=== PATIENT | female | born 1965 | race Caucasian/White ===

== ENCOUNTER 2017-06-20 13:04 | Day surgery (SDC) | payer BC ==
[2017-05-25 10:57] VITALS: BMI 53.0
[2017-06-20] MEDS ORDERED: Sodium Chloride 0.9% 10 ML ONE (13:39)
[2017-06-20] MEDS ORDERED: Propofol 200 MG/20 ML VIAL ONE (15:42)
[2017-06-20] MEDS ORDERED: Lidocaine 1% PF 5 ML VIAL ONE (15:42)
--- NOTE | 2017-06-21 12:09 | OP ---
DATE OF PROCEDURE: 06/20/2017 PREOPERATIVE DIAGNOSIS: Colorectal cancer screening. DESCRIPTION OF THE PROCEDURE: After informed consent was obtained, the patient was placed in the le ft lateral decubitus position and anesthesia was administered per the Anesthesia Department. Forwar d viewing endoscope was inserted into the rectum after perianal inspection and rectal exam were norm al and passed to the cecum with ease. The cecum, ileocecal valve, and appendiceal orifice were norm al. The ascending, transverse, descending, sigmoid, and rectum were normal except for a single poly p at the splenic flexure. This polyp was removed with snare electrocautery. ASSESSMENT: 1. Splenic flexure polyp - status post polypectomy. 2. Otherwise, normal colonoscopy. RECOMMENDATIONS: Await histopathology.
== END 2017-06-20 16:42 | disposition home or self-care (01) ==
LOC: SDC 13:04
PROVIDERS: ATTEND Internal Medicine Gastroenterology
PROC: 0DBN8ZX Excision of Sigmoid Colon, Via Natural or Artificial Opening Endoscopic, Diagnostic (ICD-10-PCS; principal; 2017-06-20)
DX: Z12.11 Encounter for screening for malignant neoplasm of colon (principal); K63.5 Polyp of colon; Z79.899 Other long term (current) drug therapy; Z88.0 Allergy status to penicillin; Z90.12 Acquired absence of left breast and nipple; Z90.49 Acquired absence of other specified parts of digestive tract; Z85.3 Personal history of malignant neoplasm of breast
CPT/HCPCS: 88305; J2001; J2704

== ENCOUNTER 2018-05-14 13:41 | Outpatient (CLI) | payer BC | END 2018-05-14 13:42 | disposition home or self-care (01) | LOC: BICMAMMO 13:41 | PROVIDERS: ATTEND Internal Medicine Medical Oncology | DX: C50.919 Malignant neoplasm of unspecified site of unspecified female breast (principal); Z80.3 Family history of malignant neoplasm of breast | CPT/HCPCS: 77080; G0279 ==

== ENCOUNTER 2019-05-15 11:56 | Outpatient (CLI) | payer BC, SELFPAY ==
--- NOTE | 2019-05-20 06:45 | MMO ---
Bilateral MAMMO Bilat Screen [facility]. CLINICAL HISTORY: Patient is 53 years old and is seen for screening. The patient has the following family history of breast cancer: mother, at age 42, malignant (generic). The patient has a history of left Mastectomy in 2013 - malignant. VIEWS: The views performed were: right craniocaudal with tomosynthesis and right mediolateral oblique with tomosynthesis. FILMS COMPARED: The present examination has been compared to prior imaging studies performed at [facility] on 04/01/2015, 04/10/2016, 04/11/2017 and 05/14/2018. MAMMOGRAM FINDINGS: There are scattered fibroglandular densities. Patient has history of left breast mastectomy. There are no suspicious masses, suspicious calcifications, or new areas of architectural distortion. IMPRESSION: THERE IS NO MAMMOGRAPHIC EVIDENCE OF MALIGNANCY. A ROUTINE FOLLOW-UP MAMMOGRAM IN 1 YEAR IS RECOMMENDED. THE RESULTS OF THIS EXAM WERE SENT TO THE PATIENT. ACR BI-RADS Category 2 - Benign finding MAMMOGRAPHY NOTE: 1. A negative mammogram report should not delay a biopsy if a dominant of clinically suspicious mass is present. 2. Approximately 10% to 15% of breast cancers are not detected by mammography. 3. Adenosis and dense breasts may obscure an underlying neoplasm. Reported by: LOY PELAYO MD Electonically Signed: [id number]
== END 2019-05-15 11:57 | disposition home or self-care (01) ==
LOC: BICMAMMO 11:56
PROVIDERS: ATTEND Internal Medicine Medical Oncology
DX: Z12.31 Encounter for screening mammogram for malignant neoplasm of breast (principal); Z80.3 Family history of malignant neoplasm of breast; Z90.12 Acquired absence of left breast and nipple
CPT/HCPCS: 77063; 77067

== ENCOUNTER 2020-08-06 07:02 | Outpatient (CLI) | payer OTHER ==
[2020-08-06 18:43] LABS: Hemoglobin 13.3 g/dL (12.0-16.0); Mean Corpuscular HGB CONC 31.7 G/DL (32.0-36.0); Mean Corpuscular Volume 85.2 fl (80.0-100.0); Mean Platelet Volume 9.6 fl (7.4-10.4); Platelet Count 254 10x3/uL (130-400); RBC Distribution Width 13.1 % (11.5-14.5); Red Blood Cell (RBC) Count 4.92 10x6/uL (3.90-5.20); White Blood Cell (WBC) Count 13.1 10x3/uL (4.5-11.0)
[2020-08-06 18:58] LABS: Anion Gap 17 mmol/L (10-20); BUN (Urea Nitrogen) 12 mg/dL (9.8-20.1); Calc. Creatinine Clearance 0 mL/min (70-130); Carbon Dioxide 22 mmol/L (22-29); Chloride 104 mmol/L (98-107); Estimated GFR-MDRD 86; Glucose 96 mg/dL (70-105); Potassium 4.4 mmol/L (3.5-5.1); Sodium 139 mmol/L (136-145)
[2020-08-07 13:41] LABS: SARS-CoV-2 MS2 Positive; SARS-CoV-2 N Gene Negative; SARS-CoV-2 S Gene Negative; SARS-CoV-2 by NAA Not Detected (NotDetected); SARS-CoV-2 orf1ab Negative
== END 2020-08-06 07:03 | disposition home or self-care (01) ==
LOC: LABBT 07:02
PROVIDERS: ATTEND Student in an Organized Health Care Education/Training Program
DX: Z01.812 Encounter for preprocedural laboratory examination (principal); Z20.828 Contact with and (suspected) exposure to other viral communicable diseases; N93.9 Abnormal uterine and vaginal bleeding, unspecified
CPT/HCPCS: 80048; 85027; 86850; 86900; 86901; 87635; U0003

== ENCOUNTER 2020-08-11 09:54 | Day surgery (SDC) | payer OTHER ==
[2020-08-10 14:24] VITALS: BMI 60.0
[~2020-08-11 09:54] MED LIST: Dexamethasone 20 MG/5 ML VIAL ONE; Glycopyrrolate 0.2 MG/ML 5 ML SYRINGE ONE; Lidocaine 1% PF 5 ML VIAL ONE; Ondansetron PF 4 MG/2 ML Vial ONE; PROPOFOL 200 MG/20 ML VIAL ONE; Rocuronium Bromide 10 MG/ML (10ML VIAL) ONE; Succinylcholine 200 MG/10 ml SYRINGE FS ONE
[2020-08-11] MEDS ORDERED: Fentanyl 100 MCG/2 ML VIAL ONE (10:25)
--- NOTE | 2020-08-11 14:49 | OP ---
DATE OF PROCEDURE: 08/11/2020 PREOPERATIVE DIAGNOSES: 1. Abnormal uterine bleeding. 2. Simple hyperplasia without atypia. POSTOPERATIVE DIAGNOSES: 1. Abnormal uterine bleeding. 2. Simple hyperplasia without atypia. PROCEDURES PERFORMED: Hysteroscopy, D and C with TruClear resection. ANESTHESIA: General endotracheal. CLINICAL SUPERVISOR SURGEON: None. ESTIMATED BLOOD LOSS: 10 mL. URINE OUTPUT: 50 mL clear urine at the beginning. COMPLICATIONS: None. DRAINS: None. PATHOLOGY: Endometrial curettings. FINDINGS: Uterus with multiple tissue projections that were polypoid-like. Bilateral tubal ostia were visualized. The uterus sounded to 9 cm. There was a large amount of endometrial tissue obtained. The cervix was normal appearing and the fluid deficit for the case was 1630 mL. DESCRIPTION OF PROCEDURE: The patient was taken to the operating room, where general anesthesia was obtained without difficulty. The patient was prepped and draped in a sterile fashion in the dorsal lithotomy position. A red rubber was used to drain the bladder. The speculum was placed in the vagina. The anterior lip of the cervix was grasped with single-tooth tenaculum. The cervix was then progressively dilated with Girish dilators. The uterus then sounded to 9 cm and the 5 mm hysteroscope was assembled, and using normal saline as distention media, it was inserted into the uterus and the above findings were noted and photodocumentation was performed. The small soft tissue mini incisor was then used to morcellate the tissue and sent for final pathology. The fluid deficit was increased at that point. Therefore, sharp curette was performed through all four uterine quadrants and this was also sent with the final specimen. The tenaculum was then removed off the cervix. There was no active bleeding from the cervix and all instruments were then removed from the vagina. The patient tolerated the procedure well. Sponge, lap, and needle counts correct x2. The patient was taken to recovery room in stable condition. The patient received Ancef 2 g prior to the procedure. Job ID: [id number]
== END 2020-08-11 14:48 | disposition home or self-care (01) ==
LOC: SDC 09:54
PROVIDERS: ATTEND Student in an Organized Health Care Education/Training Program
PROC: 0UDB8ZZ Extraction of Endometrium, Via Natural or Artificial Opening Endoscopic (ICD-10-PCS; principal; 2020-08-11)
DX: N85.02 Endometrial intraepithelial neoplasia [EIN] (principal); Z79.899 Other long term (current) drug therapy; Z88.0 Allergy status to penicillin
CPT/HCPCS: 86850; 86900; 86901; 88305; J0690; J1100; J2405; J2704; J3010

== ENCOUNTER 2020-09-27 06:38 | Outpatient (CLI) | payer OTHER ==
[2020-09-27 08:35] LABS: Hemoglobin 11.8 g/dL (12.0-16.0); Mean Corpuscular HGB CONC 30.8 G/DL (32.0-36.0); Mean Corpuscular Hemoglobin 26.9 PG (27.0-33.0); Mean Corpuscular Volume 87.2 fl (80.0-100.0); Mean Platelet Volume 9.6 fl (7.4-10.4); Platelet Count 201 10x3/uL (130-400); RBC Distribution Width 13.1 % (11.5-14.5); Red Blood Cell (RBC) Count 4.39 10x6/uL (3.90-5.20); White Blood Cell (WBC) Count 8.9 10x3/uL (4.5-11.0)
[2020-09-27 18:01] LABS: SARS-CoV-2 MS2 Positive; SARS-CoV-2 N Gene Positive; SARS-CoV-2 S Gene Positive; SARS-CoV-2 by NAA DETECTED (NotDetected); SARS-CoV-2 orf1ab Positive
== END 2020-09-27 06:39 | disposition home or self-care (01) ==
LOC: LABBT 06:38
PROVIDERS: ATTEND Student in an Organized Health Care Education/Training Program
DX: U07.1 COVID-19 (principal); Z01.812 Encounter for preprocedural laboratory examination; N85.01 Benign endometrial hyperplasia
CPT/HCPCS: 85027; 87635; U0003

== ENCOUNTER 2021-01-30 15:20 | Inpatient (IN) | payer BC ==
[~2021-01-30 15:20] MED LIST changes: -Dexamethasone 20 MG/5 ML VIAL ONE; -Glycopyrrolate 0.2 MG/ML 5 ML SYRINGE ONE; +Iopamidol-370 76% 500 ML 1 ML ONE; -Lidocaine 1% PF 5 ML VIAL ONE; -Ondansetron PF 4 MG/2 ML Vial ONE; -PROPOFOL 200 MG/20 ML VIAL ONE; -Rocuronium Bromide 10 MG/ML (10ML VIAL) ONE; -Succinylcholine 200 MG/10 ml SYRINGE FS ONE
[2021-01-30 18:12] VITALS: BMI 60.6
[2021-01-30] MEDS ORDERED: Acetaminophen 325 MG TAB PO PRN (18:12)
[2021-01-30] MEDS ORDERED: Potassium Chloride 20 MEQ TAB PO SCH (18:30)
[2021-01-30 19:15] LABS: Troponin I Less than 0.010 ng/mL (< 0.028)
[2021-01-30] MEDS: Famotidine 20 MG TAB PO SCH (22:18)
[2021-01-30] MEDS: Enoxaparin Sodium 40 MG/0.4 ML SYRINGE SC SCH (22:18)
[2021-01-31 05:42] LABS: #Monocytes 0.3 thou/uL (0.11-0.59); #Neutrophils 2.8 thou/uL (1.40-6.50); %Eosinophils 0.1 % (0.0-10.0); %Lymphocytes 24.5 % (21.0-51.0); %Monocytes 7.1 % (0.0-10.0); %Neutrophils 68.4 % (42.0-75.0); Hemoglobin 11.6 g/dL (12.0-16.0); Mean Corpuscular Hemoglobin 28.2 pg (27.0-31.0); Mean Corpuscular Volume 85.5 fL (78.0-98.0); Mean Platelet Volume 7.3 fL (7.4-10.4); Platelet Count 187 thou/uL (130-400); Red Blood Cell (RBC) Count 4.11 mill/uL (4.20-5.40); White Blood Cell (WBC) Count 4.1 thou/uL (4.8-10.8)
[2021-01-31 06:16] LABS: Anion Gap 12 mmol/L (10-20); BUN (Urea Nitrogen) 7 mg/dL (9.8-20.1); Calc. Creatinine Clearance 258 mL/min (70-130); Calcium 8.8 mg/dL (7.8-10.44); Carbon Dioxide 28 mmol/L (22-29); Chloride 106 mmol/L (98-107); Glucose 131 mg/dL (70-105); Potassium 3.9 mmol/L (3.5-5.1); Sodium 142 mmol/L (136-145)
[2021-01-31] MEDS: Mometasone 200 MCG/Formoterol 5 MCG 120 PUFF INHALER INH SCH ×3 (06:36→18:59)
[2021-01-31] MEDS: Cholecalciferol (Vitamin D3) 400 UNITS TAB PO SCH (09:44)
[2021-01-31] MEDS: Famotidine 20 MG TAB PO SCH ×2 (09:44→20:45)
[2021-01-31] MEDS: Zinc Sulfate 220 MG CAP PO SCH (09:44)
[2021-01-31] MEDS: Enoxaparin Sodium 40 MG/0.4 ML SYRINGE SC SCH (09:45)
[2021-01-31] MEDS: Dexamethasone 4 mg/ml Vial SLOW IVP SCH (09:45)
[2021-01-31] MEDS: Ascorbic Acid 500 mg Chewable Tablet PO SCH (09:45)
[2021-01-31] MEDS ORDERED: REMDESIVIR (EUA) 200 MG in Sodium Chloride 0.9% 250 ML 210 ML IV SCH ×2 (14:30→20:00)
[2021-01-31] MEDS: Apixaban 5 MG TAB PO SCH (20:45)
[2021-02-01] MEDS: Mometasone 200 MCG/Formoterol 5 MCG 120 PUFF INHALER INH SCH ×2 (06:40→18:46)
[2021-02-01] MEDS: Cholecalciferol (Vitamin D3) 400 UNITS TAB PO SCH (08:45)
[2021-02-01] MEDS: Ascorbic Acid 500 mg Chewable Tablet PO SCH (08:45)
[2021-02-01] MEDS: Famotidine 20 MG TAB PO SCH ×2 (08:45→20:44)
[2021-02-01] MEDS: Apixaban 5 MG TAB PO SCH ×2 (08:45→20:44)
[2021-02-01] MEDS: Zinc Sulfate 220 MG CAP PO SCH (08:45)
[2021-02-01] MEDS: Dexamethasone 4 mg/ml Vial SLOW IVP SCH (08:45)
[2021-02-01] MEDS: Ivermectin 3 MG TAB PO SCH (08:48)
[2021-02-01] MEDS: REMDESIVIR (EUA) 100 MG in Sodium Chloride 0.9% 250 ML 230 ML IV SCH (20:44)
[2021-02-02 05:39] LABS: ALT (SGPT) 91 U/L (8-55); AST (SGOT) 64 U/L (5-34); Albumin 3.2 g/dL (3.5-5.0); Alkaline Phosphatase 46 U/L (40-110); Bilirubin, Direct 0.1 mg/dL (0.1-0.3); Bilirubin, Total 0.3 mg/dL (0.2-1.2); Protein, Total 6.2 g/dL (6.0-8.3)
[2021-02-02] MEDS: Mometasone 200 MCG/Formoterol 5 MCG 120 PUFF INHALER INH SCH ×2 (06:05→19:31)
[2021-02-02] MEDS: Ivermectin 3 MG TAB PO SCH (08:24)
[2021-02-02] MEDS: Dexamethasone 4 mg/ml Vial SLOW IVP SCH (08:25)
[2021-02-02] MEDS: Apixaban 5 MG TAB PO SCH ×2 (08:25→20:32)
[2021-02-02] MEDS: Famotidine 20 MG TAB PO SCH ×2 (08:25→20:32)
[2021-02-02] MEDS: Zinc Sulfate 220 MG CAP PO SCH (08:25)
[2021-02-02] MEDS: Cholecalciferol (Vitamin D3) 400 UNITS TAB PO SCH (08:25)
[2021-02-02] MEDS: Ascorbic Acid 500 mg Chewable Tablet PO SCH (08:25)
[2021-02-02] MEDS: REMDESIVIR (EUA) 100 MG in Sodium Chloride 0.9% 250 ML 230 ML IV SCH (20:32)
[2021-02-03] MEDS: Mometasone 200 MCG/Formoterol 5 MCG 120 PUFF INHALER INH SCH ×2 (06:18→18:35)
[2021-02-03] MEDS: Ascorbic Acid 500 mg Chewable Tablet PO SCH (08:04)
[2021-02-03] MEDS: Famotidine 20 MG TAB PO SCH ×2 (08:04→20:13)
[2021-02-03] MEDS: Zinc Sulfate 220 MG CAP PO SCH (08:04)
[2021-02-03] MEDS: Apixaban 5 MG TAB PO SCH ×2 (08:04→20:13)
[2021-02-03] MEDS: Cholecalciferol (Vitamin D3) 400 UNITS TAB PO SCH (08:04)
[2021-02-03] MEDS: Ivermectin 3 MG TAB PO SCH (08:04)
[2021-02-03] MEDS: Dexamethasone 4 mg/ml Vial SLOW IVP SCH (08:04)
[2021-02-03] MEDS: REMDESIVIR (EUA) 100 MG in Sodium Chloride 0.9% 250 ML 230 ML IV SCH (20:12)
[2021-02-04] MEDS: Mometasone 200 MCG/Formoterol 5 MCG 120 PUFF INHALER INH SCH ×2 (05:43→19:20)
[2021-02-04] MEDS: Cholecalciferol (Vitamin D3) 400 UNITS TAB PO SCH (08:41)
[2021-02-04] MEDS: Ivermectin 3 MG TAB PO SCH (08:41)
[2021-02-04] MEDS: Zinc Sulfate 220 MG CAP PO SCH (08:41)
[2021-02-04] MEDS: Famotidine 20 MG TAB PO SCH ×2 (08:41→20:48)
[2021-02-04] MEDS: Apixaban 5 MG TAB PO SCH ×2 (08:41→20:48)
[2021-02-04] MEDS: Ascorbic Acid 500 mg Chewable Tablet PO SCH ×2 (08:41→08:42)
[2021-02-04] MEDS: Dexamethasone 4 mg/ml Vial SLOW IVP SCH (08:42)
[2021-02-04] MEDS: REMDESIVIR (EUA) 100 MG in Sodium Chloride 0.9% 250 ML 230 ML IV SCH (20:48)
[2021-02-05] MEDS: Mometasone 200 MCG/Formoterol 5 MCG 120 PUFF INHALER INH SCH (06:05)
[2021-02-05] MEDS: Apixaban 5 MG TAB PO SCH (09:22)
[2021-02-05] MEDS: Cholecalciferol (Vitamin D3) 400 UNITS TAB PO SCH (09:22)
[2021-02-05] MEDS: Famotidine 20 MG TAB PO SCH (09:22)
[2021-02-05] MEDS: Dexamethasone 4 mg/ml Vial SLOW IVP SCH (09:23)
[2021-02-05] MEDS: Zinc Sulfate 220 MG CAP PO SCH (09:23)
[2021-02-05] MEDS: Ascorbic Acid 500 mg Chewable Tablet PO SCH (09:24)
[2021-02-05] MEDS: Ivermectin 3 MG TAB PO SCH (09:24)
[2021-02-05 09:27] VITALS: BP 116/69; TEMP 97.6
== END 2021-02-05 11:25 | disposition home or self-care (01) | DRG 177 ==
LOC: OBSVTOIN 15:20 → 2SW 15:20
PROVIDERS: ADMIT Family Medicine; ATTEND Internal Medicine
PROC: 5A09357 Assistance with Respiratory Ventilation, Less than 24 Consecutive Hours, Continuous Positive Airway Pressure (ICD-10-PCS; 2021-01-30)
PROC: XW033E5 Introduction of Remdesivir Anti-infective into Peripheral Vein, Percutaneous Approach, New Technology Group 5 (ICD-10-PCS; principal; 2021-01-31)
PROC: 8E0ZXY6 Isolation (ICD-10-PCS; 2021-01-31)
DX: U07.1 COVID-19 (principal); J12.82 Pneumonia due to coronavirus disease 2019; Z68.44 Body mass index [BMI] 60.0-69.9, adult; R74.01 Elevation of levels of liver transaminase levels; G47.33 Obstructive sleep apnea (adult) (pediatric); E66.01 Morbid (severe) obesity due to excess calories; R79.89 Other specified abnormal findings of blood chemistry; Z60.2 Problems related to living alone; E87.6 Hypokalemia; I45.81 Long QT syndrome; R19.7 Diarrhea, unspecified; Z28.21 Immunization not carried out because of patient refusal; Z85.3 Personal history of malignant neoplasm of breast; Z90.12 Acquired absence of left breast and nipple; Z92.21 Personal history of antineoplastic chemotherapy; Z88.0 Allergy status to penicillin; Z90.49 Acquired absence of other specified parts of digestive tract; Z98.51 Tubal ligation status; Z79.810 Long term (current) use of selective estrogen receptor modulators (SERMs); Z82.49 Family history of ischemic heart disease and other diseases of the circulatory system; Z86.16 Personal history of COVID-19; Z79.899 Other long term (current) drug therapy
CPT/HCPCS: 36415; 71275; 80048; 80076; 82728; 85025; 85379; 85652; 86140; 93306; J1100; J1650; J7050; Q9967

== ENCOUNTER 2021-05-25 07:51 | Outpatient (CLI) | payer BC | END 2021-05-25 07:52 | disposition home or self-care (01) | LOC: BICMAMMO 07:51 | PROVIDERS: ATTEND Internal Medicine Medical Oncology | DX: Z12.31 Encounter for screening mammogram for malignant neoplasm of breast (principal); Z80.3 Family history of malignant neoplasm of breast; Z85.3 Personal history of malignant neoplasm of breast; Z90.12 Acquired absence of left breast and nipple | CPT/HCPCS: 77063; 77067 ==

== ENCOUNTER 2021-06-08 08:53 | Outpatient (CLI) | payer BC | END 2021-06-08 08:54 | disposition home or self-care (01) | LOC: DTY/OP 08:53 | PROVIDERS: ATTEND Specialist | DX: Z01.818 Encounter for other preprocedural examination (principal); E66.01 Morbid (severe) obesity due to excess calories | CPT/HCPCS: 97802 ==

== ENCOUNTER 2021-08-15 14:15 | Inpatient (IN) | payer BC, OTHER ==
[2021-08-18] MEDS ORDERED: Midazolam HCl 2 mg/2 ml Vial ONE (06:45)
[2021-08-18] MEDS ORDERED: Fentanyl 100 MCG/2 ML VIAL ONE ×2 (06:45)
[2021-08-18] MEDS ORDERED: Ketorolac Tromethamine 30 MG/ML VIAL ONE (06:52)
[2021-08-18] MEDS ORDERED: Acetaminophen 500 MG TAB ONE (06:52)
[2021-08-18] MEDS ORDERED: Levofloxacin 500 mg/D5W 100 ml Premix Bag ONE (06:52)
[2021-08-18] MEDS ORDERED: Bupivacaine 0.25% HCL 30 ML VIAL ONE (06:58)
[2021-08-18] MEDS ORDERED: Lidocaine 1% w/Epinephrine 1:100K 20 ML VIAL ONE (06:58)
[2021-08-18] MEDS ORDERED: Heparin 5,000 UNITS/ML VIAL ONE (07:22)
[2021-08-18 07:34] LABS: Anion Gap 13 mmol/L (10-20); BUN (Urea Nitrogen) 9 mg/dL (9.8-20.1); Calc. Creatinine Clearance 225 mL/min (70-130); Calcium 9.3 mg/dL (7.8-10.44); Carbon Dioxide 24 mmol/L (22-29); Chloride 106 mmol/L (98-107); Glucose 121 mg/dL (70-105); Potassium 4.2 mmol/L (3.5-5.1); Sodium 139 mmol/L (136-145)
[2021-08-18] MEDS ORDERED: Lidocaine 1% PF 5 ML VIAL ONE (07:36)
[2021-08-18] MEDS ORDERED: Glycopyrrolate 0.2 MG/ML 5 ML SYRINGE ONE (07:36)
[2021-08-18] MEDS ORDERED: Rocuronium Bromide 10 MG/ML (10ML VIAL) ONE (07:36)
[2021-08-18] MEDS ORDERED: Ondansetron PF 4 MG/2 ML Vial ONE (07:36)
[2021-08-18] MEDS ORDERED: PROPOFOL 200 MG/20 ML VIAL ONE (07:36)
[2021-08-18] MEDS ORDERED: Dexamethasone 20 MG/5 ML VIAL ONE (07:36)
[2021-08-18] MEDS ORDERED: Promethazine HCl 25 MG/ML VIAL IVPB PRN (09:26)
[2021-08-18] MEDS ORDERED: Promethazine HCl 25 MG/ML VIAL IM PRN ×2 (09:26→10:14)
[2021-08-18] MEDS ORDERED: Ondansetron HCl/PF 4 MG/2 ML Vial IVP PRN (09:26)
[2021-08-18] MEDS ORDERED: diphenhydrAMINE 50 MG/ML VIAL IVP PRN (10:14)
[2021-08-18] MEDS ORDERED: Hydrocodone-Acetamin 15 ML UDCUP PO PRN (10:14)
[2021-08-18] MEDS ORDERED: Dextrose 50% Abboject 50 ML SYRINGE SLOW IVP PRN (10:14)
[2021-08-18] MEDS ORDERED: Morphine 4 MG/ML VIAL SLOW IVP PRN (10:14)
[2021-08-18] MEDS ORDERED: Dextrose 5% in Water 1,000 ML IV PRN (10:14)
[2021-08-18] MEDS ORDERED: Ondansetron PF 4 MG/2 ML Vial IVP PRN (10:14)
[2021-08-18] MEDS ORDERED: hydrALAZINE 20 MG/ML VIAL SLOW IVP PRN (10:14)
[2021-08-18] MEDS ORDERED: D5 1/2 NS w/20 mEq KCL 1,000 ML ONE (10:33)
[2021-08-18] MEDS ORDERED: Promethazine HCl 25 MG/ML VIAL ONE (10:42)
[2021-08-18] MEDS ORDERED: Pantoprazole 40 MG VIAL IVP SCH (10:45)
[2021-08-18] MEDS: Morphine 4 MG/ML VIAL SLOW IVP PRN ×2 (11:34→15:22)
[2021-08-18 11:48] LABS: #Lymphocytes 1.3 thou/uL (1.20-3.40); #Monocytes 0.2 thou/uL (0.11-0.59); #Neutrophils 10.9 thou/uL (1.40-6.50); %Basophils 0.2 % (0.0-1.0); %Eosinophils 0.1 % (0.0-10.0); %Lymphocytes 10.7 % (21.0-51.0); %Monocytes 1.3 % (0.0-10.0); %Neutrophils 87.7 % (42.0-75.0); Hemoglobin 12.3 g/dL (12.0-16.0); Mean Corpuscular Hemoglobin 28.4 pg (27.0-31.0); Mean Corpuscular Volume 85.9 fL (78.0-98.0); Mean Platelet Volume 8.3 fL (7.4-10.4); Platelet Count 137 thou/uL (130-400); RBC Distribution Width 12.3 % (11.5-14.5); Red Blood Cell (RBC) Count 4.33 mill/uL (4.20-5.40); White Blood Cell (WBC) Count 12.4 thou/uL (4.8-10.8)
[2021-08-18 13:34] VITALS: BMI 55.9
[2021-08-18] MEDS: D5 1/2 NS w/20 mEq KCL 1,000 ML IV SCH ×2 (13:51→19:15)
[2021-08-18] MEDS: Ketorolac Tromethamine 30 MG/ML VIAL IVP SCH ×2 (14:06→18:32)
[2021-08-18] MEDS ORDERED: Enoxaparin Sodium 40 MG/0.4 ML SYRINGE SC SCH (21:00)
[2021-08-18 21:16] VITALS: TEMP 98.1
[2021-08-19] MEDS: Ketorolac Tromethamine 30 MG/ML VIAL IVP SCH ×2 (01:19→06:36)
[2021-08-19 03:02] VITALS: BP 124/78
[2021-08-19] MEDS: D5 1/2 NS w/20 mEq KCL 1,000 ML IV SCH (03:17)
[2021-08-19 04:40] LABS: Anion Gap 8 mmol/L (10-20); BUN (Urea Nitrogen) 6 mg/dL (9.8-20.1); Calc. Creatinine Clearance 247 mL/min (70-130); Calcium 8.6 mg/dL (7.8-10.44); Carbon Dioxide 27 mmol/L (22-29); Chloride 108 mmol/L (98-107); Glucose 136 mg/dL (70-105); Potassium 4.1 mmol/L (3.5-5.1); Sodium 139 mmol/L (136-145)
[2021-08-19 04:41] LABS: #Lymphocytes 2.4 thou/uL (1.20-3.40); #Monocytes 0.7 thou/uL (0.11-0.59); #Neutrophils 8.8 thou/uL (1.40-6.50); %Basophils 0.1 % (0.0-1.0); %Eosinophils 0.1 % (0.0-10.0); %Lymphocytes 20.5 % (21.0-51.0); %Monocytes 5.9 % (0.0-10.0); %Neutrophils 73.4 % (42.0-75.0); Mean Corpuscular HGB CONC 33.5 g/dL (32.0-36.0); Mean Corpuscular Hemoglobin 28.8 pg (27.0-31.0); Mean Corpuscular Volume 85.9 fL (78.0-98.0); Mean Platelet Volume 8.3 fL (7.4-10.4); Platelet Count 166 thou/uL (130-400); RBC Distribution Width 12.3 % (11.5-14.5); Red Blood Cell (RBC) Count 4.17 mill/uL (4.20-5.40); White Blood Cell (WBC) Count 11.9 thou/uL (4.8-10.8)
[2021-08-19] MEDS ORDERED: Pantoprazole 40 MG VIAL IVP SCH (09:00)
[2021-08-19] MEDS ORDERED: FLU VACC QS2021-22(6MOS UP)/PF 60 MCG/0.5 ML SYRINGE IM ONE (09:00)
== END 2021-08-19 11:25 | disposition home or self-care (01) | DRG 620 ==
LOC: SURG A 08-18 06:33 → SURG B 08-18 11:26
PROVIDERS: ADMIT Specialist; ATTEND Specialist
PROC: 0DB64Z3 Excision of Stomach, Percutaneous Endoscopic Approach, Vertical (ICD-10-PCS; principal; 2021-08-18)
PROC: 0W3P4ZZ Control Bleeding in Gastrointestinal Tract, Percutaneous Endoscopic Approach (ICD-10-PCS; 2021-08-18)
DX: E66.01 Morbid (severe) obesity due to excess calories (principal); K91.72 Accidental puncture and laceration of a digestive system organ or structure during other procedure; Y65.8 Other specified misadventures during surgical and medical care; Z68.43 Body mass index [BMI] 50.0-59.9, adult; Z85.3 Personal history of malignant neoplasm of breast; Z92.21 Personal history of antineoplastic chemotherapy; Z86.16 Personal history of COVID-19; Z79.810 Long term (current) use of selective estrogen receptor modulators (SERMs); Z80.3 Family history of malignant neoplasm of breast; Z88.0 Allergy status to penicillin; Z20.822 Contact with and (suspected) exposure to COVID-19
CPT/HCPCS: 36415; 36416; 80048; 85025; 88307; C9113; J1100; J1644; J1650; J1885; J1956; J2250; J2270; J2405; J2550; J2704; J3010; J3480; S0020

== ENCOUNTER 2021-08-15 14:44 | Outpatient (CLI) | payer BC ==
[2021-08-16 13:30] LABS: SARS-CoV-2 PCR by NAA Not Detected (NotDetected)
== END 2021-08-15 14:45 | disposition home or self-care (01) ==
LOC: LABBT 14:44
PROVIDERS: ATTEND Specialist
DX: Z01.818 Encounter for other preprocedural examination (principal); E66.01 Morbid (severe) obesity due to excess calories; Z20.822 Contact with and (suspected) exposure to COVID-19
CPT/HCPCS: 93005; 93010; U0003; U0005

== ENCOUNTER 2022-05-26 14:47 | Outpatient (CLI) | payer BC | END 2022-05-26 14:48 | disposition home or self-care (01) | LOC: BICMAMMO 14:47 | PROVIDERS: ATTEND Internal Medicine Medical Oncology | DX: Z12.31 Encounter for screening mammogram for malignant neoplasm of breast (principal); Z80.3 Family history of malignant neoplasm of breast; Z85.3 Personal history of malignant neoplasm of breast; Z90.12 Acquired absence of left breast and nipple | CPT/HCPCS: 77063; 77067 ==

== ENCOUNTER 2025-07-15 07:58 | Outpatient (CLI) | payer OTHER | END 2025-07-15 07:59 | disposition home or self-care (01) | LOC: BICMAMMO 07:58 | PROVIDERS: ATTEND Internal Medicine | DX: Z12.31 Encounter for screening mammogram for malignant neoplasm of breast (principal); M81.0 Age-related osteoporosis without current pathological fracture; Z80.3 Family history of malignant neoplasm of breast; Z85.3 Personal history of malignant neoplasm of breast; Z90.12 Acquired absence of left breast and nipple | CPT/HCPCS: 77063; 77067; 77080 ==